=== PATIENT | male | born 1980 | race Hispanic/Latino ===

== ENCOUNTER 2018-05-06 01:11 | Emergency (ER) | payer OTHER ==
[2018-05-06] MEDS ORDERED: OCTYL 2-CYANOACRYLATE 1 EACH TP ONE (01:28)
[2018-05-06] MEDS ORDERED: TETANUS/DIPHTHERIA TOXOID [ADULT] 0.5 ML VIAL IM ONE (01:28)
== END 2018-05-06 02:01 | disposition home or self-care (01) ==
LOC: EDH 01:11
DX: S61.412A Laceration without foreign body of left hand, initial encounter (principal); E11.9 Type 2 diabetes mellitus without complications; Z72.0 Tobacco use; X58.XXXA Exposure to other specified factors, initial encounter; Y93.G3 Activity, cooking and baking; Y92.89 Other specified places as the place of occurrence of the external cause; Y99.8 Other external cause status
CPT/HCPCS: 12002; 90471; 90714

== ENCOUNTER 2019-05-12 23:48 | Inpatient (IN) | payer SELFPAY ==
[~2019-05-12] VITALS: Ht 170.2 cm; Wt 102.4 kg
[2019-05-13] VITALS (19 sets, daily range): BP systolic 93–157; BP diastolic 45–100
[2019-05-13] MEDS ORDERED: CLINDAMYCIN 900 MG/D5% WATER 50 ML IV ONE (00:23)
[2019-05-13] MEDS ORDERED: AMPICILLIN SODIUM/SULBACTAM NA 1.5GM VIAL ONE (00:24)
[2019-05-13] MEDS ORDERED: ONDANSETRON HCL 4 MG/2 ML VIAL ONE ×2 (00:24→12:47)
[2019-05-13] MEDS ORDERED: SODIUM CHLORIDE 0.9% 1000ML 3,000 ML IV ONE (00:25)
[2019-05-13] MEDS ORDERED: MORPHINE SULFATE 4 MG/1ML SYG ONE (00:25)
[2019-05-13 00:26] LABS: BASOPHILS % (AUTO) 1.4 % (0.0-5.0); EOSINOPHILS % (AUTO) 0.5 % (0.0-8.0); HEMATOCRIT 52.8 % (42-54); LYMPHOCYTES % (AUTO) 14.1 % (21.0-51.0); MEAN CORPUSCULAR HEMOGLOBIN 30.8 pg (27.0-33.0); MEAN CORPUSCULAR HGB CONC 34.3 g/dL (32.0-36.0); MEAN CORPUSCULAR VOLUME 89.9 fL (79-99); MONOCYTES % (AUTO) 8.9 % (3.0-13.0); NEUTROPHILS % (AUTO) 75.1 % (40.0-77.0); NUCLEATED RED BLOOD CELLS 0.1 % (0.0-0.19); PLATELET COUNT (AUTO) 198 K/uL (130-400); RED BLOOD CELL COUNT(AUTO) 5.87 MIL/uL (4.50-6.20); WHITE BLOOD COUNT (AUTO) 15.4 K/uL (4.8-10.8)
[2019-05-13] MEDS ORDERED: SODIUM CHLORIDE 0.9% 100 ML IV ONE (00:29)
[2019-05-13 00:36] LABS: CARBON DIOXIDE 29 mmol/L (21-32); CHLORIDE 97 mmol/L (101-111); GLOMERULAR FILTR. RATE CALC 90 mL/min (>60); GLUCOSE,RANDOM 181 mg/dL (70-105); POTASSIUM 3.7 mmol/L (3.5-5.1); SODIUM SERUM 136 mmol/L (136-145); UREA NITROGEN, BLOOD 14 mg/dL (7-18)
[2019-05-13 00:39] LABS: INR 1.01 (0.85-1.15); PARTIAL THROMBOPLASTIN TIME 28.3 SEC (26.3-35.5); PROTHROMBIN TIME 10.6 SEC (9.6-11.6)
[2019-05-13 00:55] LABS: ALANINE AMINOTRANSFERASE 33 U/L (12-78); ALBUMIN 3.9 g/dL (3.5-5.0); ASPARTATE AMINOTRANSFERASE 19 U/L (10-37); BILIRUBIN,TOTAL 1.4 mg/dL (0.2-1.0); CREATINE KINASE, TOTAL 91 U/L (21-232); MYOGLOBIN 42 ng/mL (10-92); TOTAL PROTEIN, SERUM 8.7 g/dL (6.0-8.3); TROPONIN I < 0.04 ng/mL (0.00-0.06)
[2019-05-13 01:09] LABS: APPEARANCE,URINE Cloudy (CLEAR); BILIRUBIN,URINE Small (NEGATIVE); COLOR,URINE Dark Yellow (YELLOW); GLUCOSE, URINE (UA) >=1000 mg/dL (NEGATIVE); KETONES,URINE 15 mg/dL (NEGATIVE); LEUKOCYTE ESTERASE ,URINE Trace (NEGATIVE); NITRATE,URINE Positive (NEGATIVE); OCCULT BLOOD,URINE Negative (NEGATIVE); PH,URINE 5.5 (5.0-8.0); PROTEIN,URINE POS 2+ mg/dL (NEGATIVE)
[2019-05-13] MEDS ORDERED: IOHEXOL-350 50ML VIAL IV ONE (01:09)
[2019-05-13 01:15] LABS: BACTERIA,URINE Rare /HPF (None Seen); MUCUS,URINE Many LPF (None Seen); RBC,URINE 0-1 /HPF (0-1); SQUAMOUS EPITHELIAL CELL,UR Moderate /HPF (0-2)
[2019-05-13] MEDS: SODIUM CHLORIDE 0.9% 1000ML 1,000 ML IV SCH ×2 (03:09→13:09)
[2019-05-13] MEDS ORDERED: HYDRALAZINE HCL 20 MG/ML VIAL IV PRN (03:15)
[2019-05-13] MEDS: CEFTRIAXONE SODIUM 1 GM IVP SCH (03:30)
[2019-05-13] MEDS ORDERED: MORPHINE SULFATE 2 MG/ML 1ML SYG ONE ×2 (03:43→04:04)
[2019-05-13] MEDS ORDERED: CEFTRIAXONE SODIUM 1 GM ONE (03:57)
[2019-05-13] MEDS ORDERED: SODIUM CHLORIDE 0.9% 1000ML 1,000 ML IV ONE (03:57)
[2019-05-13] MEDS ORDERED: HYDRALAZINE HCL 20 MG/ML VIAL ONE (04:25)
[2019-05-13 04:59] LABS: AMPHET/METH SCREEN,URINE NEGATIVE (NEGATIVE); BARBITURATE SCREEN, URINE NEGATIVE (NEGATIVE); BENZODIAZEPINES SCREEN,URINE NEGATIVE (NEGATIVE); CANNABINOID SCREEN,URINE NEGATIVE (NEGATIVE); COCAINE SCREEN,URINE POSITIVE (NEGATIVE); OPIATE SCREEN,URINE NEGATIVE (NEGATIVE); PHENCYCLIDINE SCREEN,URINE NEGATIVE (NEGATIVE)
[2019-05-13] MEDS: CLINDAMYCIN 600 MG/D5% WATER 50 ML IV SCH ×3 (05:41→20:56)
[2019-05-13] MEDS: MORPHINE SULFATE 4 MG/1ML SYG IV PRN ×2 (05:42→10:34)
--- NOTE | 2019-05-13 07:40 | NUR ---
NOTE AAOX3. C/O PAIN AND DISCOMFORT TO RIGHT SIDE OF HIS FACE. CAME IN WITH PAIN AND SWELLING TO RIGHT SIDE OF THE FACE. CT SHOWS SWELLING TO MUSCLES SALIVARY GLANDS AND CERVICAL ADENOPATHY. PATIENT REPORTS HAVING A CAVITY RIGHT LOWER MOLAR AND HAD FILLINGS BUT GOT CHIPPED AND WAS HAVING PAIN AND DISCOMFORT TO THIS CAVITY AND FOOD GOT STOCKED IN THERE AND WAS MESSING WITH IT POKING AT IT WITH FOREIGN OBJECTS AND IT STARTED TO GET SWOLLEN BUT WAS BROUGHT TO HOSPITAL BY HIS FAMILY WHEN HE COULD NO LONGER STAND THE PAIN AND HAS HAD POOR PO INTAKE THE LAST 3 DAYS. PATIENT WANTED TO DRINK WATER SINCE HE IS ON NPO STATUS SO EUGENIO SORENSEN FOR THE HOSPITALIST, WAS CALLED INTO ROOM TO ASSESS HIM BUT IT WAS DIFFICULT FOR HIM TO SWALLOW EVEN WATER. SHE WILL PLACE ORDERS FOR ENT CONSULT AND CHANGE ABX TO IV.
[2019-05-13 08:02] LABS: BASOPHILS % (AUTO) 0.5 % (0.0-5.0); EOSINOPHILS % (AUTO) 0.8 % (0.0-8.0); HEMATOCRIT 47.6 % (42-54); LYMPHOCYTES % (AUTO) 12.5 % (21.0-51.0); MEAN CORPUSCULAR HEMOGLOBIN 30.6 pg (27.0-33.0); MEAN CORPUSCULAR HGB CONC 34.2 g/dL (32.0-36.0); MEAN CORPUSCULAR VOLUME 89.7 fL (79-99); MONOCYTES % (AUTO) 9.8 % (3.0-13.0); NEUTROPHILS % (AUTO) 76.4 % (40.0-77.0); NUCLEATED RED BLOOD CELLS 0.1 % (0.0-0.19); PLATELET COUNT (AUTO) 173 K/uL (130-400); RED CELL DISTRIBUTION WIDTH 12.8 % (11.0-15.5); WHITE BLOOD COUNT (AUTO) 14.6 K/uL (4.8-10.8)
[2019-05-13 08:12] LABS: CREATININE 0.9 mg/dL (0.5-1.5); POTASSIUM 3.5 mmol/L (3.5-5.1)
[2019-05-13] MEDS ORDERED: METRONIDAZOLE 500 MG TABLET PO SCH (09:00)
[2019-05-13] MEDS: FAMOTIDINE/PF 20 MG/2 ML VIAL IV SCH ×2 (10:00→20:56)
--- NOTE | 2019-05-13 12:00 | NUR ---
NOTE DR JACKSON CAME IN TO SEE PATIENT. HE IS GOING TO SCHEDULE HIM FOR INCISION AND DRAINAGE OF NECK INFECTION. WAS MADE AWARE OF PATIENT'S DOSE OF LOVENOX RECEIVED THIS AM AND SAID THAT WAS NO PROBLEM.REFER TO CHART FOR ORDERS.
[2019-05-13] MEDS ORDERED: PROPOFOL 10 MG/ML 20ML VIAL IV ONE (12:46)
[2019-05-13] MEDS ORDERED: SUCCINYLCHOLINE 200MG/10ML SYR ONE (12:46)
[2019-05-13] MEDS ORDERED: MIDAZOLAM HCL 1 MG/ML 2ML VIAL ONE (12:46)
[2019-05-13] MEDS ORDERED: LIDOCAINE PF 2% 5ML ABBOJECT ONE (12:46)
[2019-05-13] MEDS ORDERED: GLYCOPYRROLATE 1 MG/5 ML SYRINGE ONE (12:46)
[2019-05-13] MEDS ORDERED: DEXAMETHASONE SOD PHOSPHATE 10MG/ML 1ML VIAL ONE (12:46)
[2019-05-13] MEDS ORDERED: FENTANYL CITRATE PF 50 MCG/1 ML 2ML VIAL ONE (12:47)
[2019-05-13] MEDS ORDERED: ROCURONIUM 10MG/1ML SYR 10 MG/ML ML ONE (12:47)
[2019-05-13] MEDS ORDERED: NEOSTIGMINE 5MG/5ML SYR IV ONE (12:47)
[2019-05-13] MEDS ORDERED: LACTATED RINGERS 1000ML 1,000 ML IV ONE (13:08)
[2019-05-13] MEDS ORDERED: LIDOCAINE 1%-EPI 1:100,000 20 ML VIAL IJ ONE (13:15)
--- NOTE | 2019-05-13 13:40 | NUR ---
DEP CM met with pt discussed dc plans. Pt is independent prior to admission. Lives at home with mother. Denies any equipments/services. Feels safe to go back home, still drives and works, arranges own needs, mother able to assist with transportation as necessary. Pt is a self pay, [facility] assisting given community resource packet. DC plan to home once stable. CM to cont to follow up. Addendum: 05/13/19 at 1343 by NEFTALY JO LVN CM Amended: Links added.
[2019-05-13] MEDS ORDERED: METRONIDAZOLE 500MG/100ML BAG 100 ML IV SCH ×2 (14:00)
[2019-05-13] MEDS ORDERED: MEPERIDINE-PF 25 MG/ML SYG ONE (14:18)
[2019-05-13] MEDS: ZOSYN 3.375GM+NS 50ML 50 ML IV SCH ×2 (16:08→20:56)
[2019-05-13] MEDS ORDERED: DiphenhydrAMINE HCL 50 MG/ML VIAL ONE (16:20)
--- NOTE | 2019-05-13 16:30 | NUR ---
NOTE MEDICATED FOR POSSIBLE ALLERGIC REACTION TO DEMEROL FOR THAT IS THE LAST MED THAT WAS GIVEN IN PACU. HAS SOME REDNESS TO FACE AND NECK AND SHOULDERS UPPER BACK. HE CAME BACK FROM I&D TO RIGHT SIDE OF NECK. DRESSING TO SITE D/I. SMALL AMOUNT OF RED DRAINAGE NOTED. REPORTED HE HAS MAIDA DRAIN PRESENT. ALSO PATIENT HAS BEEN SPITTING PINKISH COLOR SPUTUM OR RATHER THICK PHLEGM LIKE MATERIAL. DOES NOT COMPLAIN OF MUCH PAIN AND HE IS ABLE TO SPEAK A LITTLE BETTER THAN BEFORE HE LEFT IT WAS VERY DIFFICULT FOR HIM TO EVEN SWALLOW SALIVA. HE IS ASKING FOR SOMETHING TO DRINK BECAUSE HE KEEPS BRINGING UP THIS PHLEGM LIKE STUFF. WILL ASK PRIMARY MD ABOUT THAT SINCE WE TRIED IT THIS AM AND HE DID NOT DO GOOD. WAS NOT ABLE TO SWALLOW THIN LIQUIDS.
[2019-05-14] VITALS (7 sets, daily range): BP systolic 124–141; BP diastolic 77–96
[2019-05-14] MEDS: CLINDAMYCIN 600 MG/D5% WATER 50 ML IV SCH ×3 (04:11→20:24)
[2019-05-14] MEDS: CEFTRIAXONE SODIUM 1 GM IVP SCH (04:11)
[2019-05-14] MEDS: MORPHINE SULFATE 4 MG/1ML SYG IV PRN (04:12)
[2019-05-14] MEDS: ZOSYN 3.375GM+NS 50ML 50 ML IV SCH ×3 (04:14→22:54)
[2019-05-14] MEDS: SODIUM CHLORIDE 0.9% 1000ML 1,000 ML IV SCH ×3 (04:14→20:25)
[2019-05-14 05:48] LABS: POTASSIUM 3.9 mmol/L (3.5-5.1)
[2019-05-14] MEDS: FAMOTIDINE/PF 20 MG/2 ML VIAL IV SCH ×2 (09:14→20:25)
[2019-05-14] MEDS: MORPHINE SULFATE 2 MG/ML 1ML SYG IV PRN ×2 (14:20→20:37)
[2019-05-15 03:30] VITALS: BP 139/94
[2019-05-15] MEDS: CEFTRIAXONE SODIUM 1 GM IVP SCH (04:30)
[2019-05-15] MEDS: CLINDAMYCIN 600 MG/D5% WATER 50 ML IV SCH ×3 (04:30→20:17)
[2019-05-15] MEDS: MORPHINE SULFATE 4 MG/1ML SYG IV PRN ×3 (04:31→20:24)
[2019-05-15 05:39] LABS: BASOPHILS % (AUTO) 0.4 % (0.0-5.0); EOSINOPHILS % (AUTO) 0.4 % (0.0-8.0); LYMPHOCYTES % (AUTO) 21.6 % (21.0-51.0); MEAN CORPUSCULAR HEMOGLOBIN 30.8 pg (27.0-33.0); MEAN CORPUSCULAR HGB CONC 34.2 g/dL (32.0-36.0); MEAN CORPUSCULAR VOLUME 90.2 fL (79-99); MONOCYTES % (AUTO) 9.6 % (3.0-13.0); PLATELET COUNT (AUTO) 202 K/uL (130-400); RED BLOOD CELL COUNT(AUTO) 4.55 MIL/uL (4.50-6.20); RED CELL DISTRIBUTION WIDTH 12.9 % (11.0-15.5); WHITE BLOOD COUNT (AUTO) 12.4 K/uL (4.8-10.8)
[2019-05-15 05:44] LABS: CREATININE 0.8 mg/dL (0.5-1.5); POTASSIUM 3.9 mmol/L (3.5-5.1)
[2019-05-15] MEDS: SODIUM CHLORIDE 0.9% 1000ML 1,000 ML IV SCH ×3 (05:54→22:27)
[2019-05-15] MEDS: ZOSYN 3.375GM+NS 50ML 50 ML IV SCH ×3 (06:17→22:27)
[2019-05-15 08:00] VITALS: BP 128/78
[2019-05-15] MEDS: FAMOTIDINE/PF 20 MG/2 ML VIAL IV SCH ×2 (09:42→20:17)
[2019-05-15 12:00] VITALS: BP 143/94
[2019-05-15 16:00] VITALS: BP 138/67
[2019-05-15 20:04] VITALS: BP 144/89
[2019-05-16] VITALS (7 sets, daily range): BP systolic 130–148; BP diastolic 76–104
[2019-05-16] MEDS: MORPHINE SULFATE 4 MG/1ML SYG IV PRN ×3 (00:26→21:52)
[2019-05-16] MEDS: CLINDAMYCIN 600 MG/D5% WATER 50 ML IV SCH ×3 (03:55→19:21)
[2019-05-16] MEDS: CEFTRIAXONE SODIUM 1 GM IVP SCH (03:55)
[2019-05-16 05:23] LABS: BASOPHILS % (AUTO) 0.4 % (0.0-5.0); EOSINOPHILS % (AUTO) 1.3 % (0.0-8.0); HEMATOCRIT 42.5 % (42-54); LYMPHOCYTES % (AUTO) 23.6 % (21.0-51.0); MEAN CORPUSCULAR HEMOGLOBIN 31.2 pg (27.0-33.0); MEAN CORPUSCULAR HGB CONC 35.1 g/dL (32.0-36.0); MEAN CORPUSCULAR VOLUME 88.7 fL (79-99); MONOCYTES % (AUTO) 11.2 % (3.0-13.0); NEUTROPHILS % (AUTO) 63.5 % (40.0-77.0); NUCLEATED RED BLOOD CELLS 0.1 % (0.0-0.19); PLATELET COUNT (AUTO) 223 K/uL (130-400); RED BLOOD CELL COUNT(AUTO) 4.79 MIL/uL (4.50-6.20); RED CELL DISTRIBUTION WIDTH 12.7 % (11.0-15.5); WHITE BLOOD COUNT (AUTO) 10.3 K/uL (4.8-10.8)
[2019-05-16 05:38] LABS: CREATININE 0.9 mg/dL (0.5-1.5); POTASSIUM 3.7 mmol/L (3.5-5.1)
[2019-05-16] MEDS: ZOSYN 3.375GM+NS 50ML 50 ML IV SCH ×3 (06:06→21:52)
[2019-05-16] MEDS: SODIUM CHLORIDE 0.9% 1000ML 1,000 ML IV SCH ×2 (10:06→20:33)
[2019-05-16] MEDS: FAMOTIDINE/PF 20 MG/2 ML VIAL IV SCH ×2 (10:06→20:33)
[2019-05-16] MEDS ORDERED: LOPERAMIDE HCL 2 MG CAP PO PRN (17:00)
[2019-05-17 00:27] VITALS: BP 147/89
[2019-05-17] MEDS: CLINDAMYCIN 600 MG/D5% WATER 50 ML IV SCH (03:17)
[2019-05-17] MEDS: MORPHINE SULFATE 4 MG/1ML SYG IV PRN (03:17)
[2019-05-17] MEDS: CEFTRIAXONE SODIUM 1 GM IVP SCH (03:17)
[2019-05-17 04:37] VITALS: BP 146/95
[2019-05-17 05:06] LABS: BASOPHILS % (AUTO) 0.3 % (0.0-5.0); EOSINOPHILS % (AUTO) 2.4 % (0.0-8.0); HEMATOCRIT 44.3 % (42-54); LYMPHOCYTES % (AUTO) 24.6 % (21.0-51.0); MEAN CORPUSCULAR HEMOGLOBIN 31.3 pg (27.0-33.0); MEAN CORPUSCULAR HGB CONC 35.1 g/dL (32.0-36.0); MEAN CORPUSCULAR VOLUME 89.2 fL (79-99); MONOCYTES % (AUTO) 10.2 % (3.0-13.0); NEUTROPHILS % (AUTO) 62.5 % (40.0-77.0); NUCLEATED RED BLOOD CELLS 0.2 % (0.0-0.19); PLATELET COUNT (AUTO) 234 K/uL (130-400); RED BLOOD CELL COUNT(AUTO) 4.96 MIL/uL (4.50-6.20); RED CELL DISTRIBUTION WIDTH 12.4 % (11.0-15.5); WHITE BLOOD COUNT (AUTO) 9.1 K/uL (4.8-10.8)
[2019-05-17 05:13] LABS: CREATININE 0.9 mg/dL (0.5-1.5); POTASSIUM 3.7 mmol/L (3.5-5.1)
[2019-05-17] MEDS: ZOSYN 3.375GM+NS 50ML 50 ML IV SCH (06:21)
[2019-05-17] MEDS: SODIUM CHLORIDE 0.9% 1000ML 1,000 ML IV SCH (06:30)
[2019-05-17 07:26] VITALS: BP 150/104
[2019-05-17] MEDS: MORPHINE SULFATE 2 MG/ML 1ML SYG IV PRN (08:53)
[2019-05-17] MEDS: FAMOTIDINE/PF 20 MG/2 ML VIAL IV SCH (08:53)
--- NOTE | 2019-05-17 09:00 | NUR ---
NOTE DR JACKSON CAME IN TO SEE PATIENT AND DRESSING REMOVED WITH 2 MAIDA DRAINS REMOVED AT THIS TIME. SUTURES TO NECK INCISION REMAINS HE WILL FOLLOW UP WITH DR JACKSON ON FRIDAY. WAS INSTRUCTED BY DR JACKSON TO F/U WITH DENSTIST SOON FOR HE HAS A BAD INFECTED TOOTH AND THIS INFECTION WILL RETURN IF HE DOES NOT TAKE CARE OF HIS INFECTED TOOTH. VERBALIZES UNDERSTANDING.
[2019-05-17 11:48] VITALS: BP 156/96
[2019-05-17] MEDS ORDERED: AMOX-429 PO (15:30)
--- NOTE | 2019-05-17 15:45 | NUR ---
note DISCHARGE INSTRUCTIONS GIVEN AT THIS TIME. REFER TO CHART FOR DETAILS. NO OTHER PROBLEMS VOICED.
== END 2019-05-17 16:00 | disposition home or self-care (01) | DRG 137 ==
LOC: EDH 23:48 → EDHIP 23:49 → 4BH 05-13 04:13
PROVIDERS: ADMIT Internal Medicine; ATTEND Internal Medicine
PROC: 0J910ZZ Drainage of Face Subcutaneous Tissue and Fascia, Open Approach (ICD-10-PCS; principal; 2019-05-13 13:30)
DX: K12.2 Cellulitis and abscess of mouth (principal); L02.11 Cutaneous abscess of neck; N39.0 Urinary tract infection, site not specified; L03.211 Cellulitis of face; K11.21 Acute sialoadenitis; R59.0 Localized enlarged lymph nodes; K02.9 Dental caries, unspecified; E11.9 Type 2 diabetes mellitus without complications; E66.9 Obesity, unspecified; J32.0 Chronic maxillary sinusitis; J34.2 Deviated nasal septum; Z68.35 Body mass index [BMI] 35.0-35.9, adult
CPT/HCPCS: 36415; 70487; 71045; 80048; 80053; 80305; 81001; 82550; 82948; 83605; 83874; 84145; 84484; 85025; 85610; 85730; 87040; 87070; 87076; 93005; A4606; G0378; J0295; J0330; J0360; J0696; J1100; J1200; J2001; J2175; J2250; J2270; J2405; J2543; J2704; J2710; J3010; J3490; J7030; J7120; Q9967